=== PATIENT | male | born 1955 | race Caucasian/White ===

== ENCOUNTER 2016-08-18 08:47 | Inpatient (IN) | payer BC ==
[2016-08-18] VITALS (9 sets, daily range): BP systolic 116–158; BP diastolic 67–96; PULSE 51–84; TEMP 97.5
[~2016-08-18] VITALS: Ht 177.8 cm; Wt 102.0 kg
[2016-08-18] MEDS ORDERED: ACETYL PO (11:29)
[2016-08-18] MEDS ORDERED: [UNRECOGNIZED DRUG - OTHER] PO (11:29)
[2016-08-18] MEDS ORDERED: PHARMASSURE SA160 MG PO (11:30)
[2016-08-18] MEDS ORDERED: OPTIMIZED FOLATE PO (11:31)
[2016-08-18] MEDS ORDERED: VITAMIND3 5000 PO (11:32)
[2016-08-18] MEDS ORDERED: LIPITOR 40MG TA40 MG PO (11:32)
[2016-08-18] MEDS ORDERED: THE MEDICINE S200 M2 PO (11:33)
[2016-08-18] MEDS ORDERED: COREG 6.256.25 MG/TA PO (11:33)
[2016-08-18] MEDS ORDERED: [UNRECOGNIZED DRUG - OTHER] PO (11:34)
[2016-08-18] MEDS ORDERED: NIASPAN1000 MG PO (11:35)
[2016-08-18] MEDS ORDERED: ASPIRIN E.C. 8181 MG PO (11:36)
[2016-08-18] MEDS ORDERED: FISH OIL CONCEN1 SG2 PO (11:37)
[2016-08-18 16:41] LABS: BASO # 0.1 (0.0-0.2); BASO % 0.4 % (0.0-2.0); EOS % 0.2 % (0-4.0); GRAN # 9.8 (1.4-6.5); GRAN % 85.4 % (42.2-75.2); HEMATOCRIT 40.5 % (42.0-52.0); HEMOGLOBIN 13.4 g/dl (13.5-18.0); LYMPH # 1.4 (1.2-3.4); LYMPH % 12.1 % (20.0-51.0); MEAN CELL VOLUME 91 fl (80.0-100.0); MEAN CORPUSCULAR HEMOGLOBIN 30 pg (27.0-31.0); MEAN CORPUSCULAR HGB CONC 33 g/dl (33.0-37.0); MEAN PLATELET VOLUME 9.8 fl (7.4-10.4); MONO # 0.2 (0.1-0.6); MONO % 1.6 % (1.7-9.3); PLATELET COUNT 179 K/mm3 (130-400); RED BLOOD COUNT 4.46 M/mm3 (4.20-5.60); REDCELL DISTRIBUTION WIDTH-CV 13.4 % (11.5-14.5); WHITE BLOOD COUNT 11.5 K/mm3 (4.8-10.8)
[2016-08-18 16:57] LABS: CREATININE, serum 0.9 mg/dL (0.66-1.25); POTASSIUM 4.8 mmol/L (3.4-5.0)
[2016-08-19 01:39] VITALS: BP 130/74; PULSE 76; TEMP 98.3
[2016-08-19 05:23] VITALS: BP 139/80; PULSE 92; TEMP 98.5
[2016-08-19 09:12] LABS: CALCIUM 9.1 mg/dL (8.4-10.2); CREATININE, serum 1.18 mg/dL (0.66-1.25); POTASSIUM 4.3 mmol/L (3.4-5.0)
[2016-08-19 09:16] VITALS: BP 128/80; PULSE 73; TEMP 98.2
[2016-08-19 14:06] VITALS: BP 126/74; PULSE 90; TEMP 98.4
[2016-08-19 17:44] VITALS: BP 148/90; PULSE 72; TEMP 99
[2016-08-19 21:09] VITALS: BP 138/82; PULSE 74; TEMP 97.9
[2016-08-20 05:30] VITALS: BP 130/82; PULSE 69; TEMP 98.2
[2016-08-20 08:05] LABS: CALCIUM 8.8 mg/dL (8.4-10.2); CREATININE, serum 1.27 mg/dL (0.66-1.25); POTASSIUM 3.7 mmol/L (3.4-5.0)
[2016-08-20 10:14] VITALS: BP 150/87; PULSE 63; TEMP 98.5
[2016-08-20 13:14] VITALS: BP 95/50; PULSE 99; TEMP 97.3
[2016-08-20 13:21] VITALS: BP 132/78; PULSE 80; TEMP 97
== END 2016-08-20 16:00 | disposition home or self-care (01) | DRG 658 ==
LOC: SDCO 08:47 → SURG 10:33 → INPTSU 10:33 → SDCO 12:45 → EDSTATUS 12:45 → SURG 17:03
PROVIDERS: Urology
PROC: 8E0W4CZ Robotic Assisted Procedure of Trunk Region, Percutaneous Endoscopic Approach (ICD-10-PCS; 2016-08-18)
PROC: 0TT14ZZ Resection of Left Kidney, Percutaneous Endoscopic Approach (ICD-10-PCS; principal; 2016-08-18 12:45)
DX: C64.2 Malignant neoplasm of left kidney, except renal pelvis (principal); I25.10 Atherosclerotic heart disease of native coronary artery without angina pectoris; I48.91 Unspecified atrial fibrillation; Z95.1 Presence of aortocoronary bypass graft
CPT/HCPCS: A4315; A9284; C1713; J0330; J0360; J0690; J1100; J1170; J1885; J2250; J2405; J2704; J2710; J3010; J7120